=== PATIENT | male | born 1970 | race African-American/Black ===

== ENCOUNTER 2023-09-19 11:32 | Emergency (ER) | payer OTHER, SELFPAY ==
[2023-09-19 12:13] VITALS: BP 225/128; PULSE 75; RESP 18; TEMP 36.6; O2SAT 97; BMI 26.6
--- NOTE | 2023-09-19 12:14 | ED.GENADULT ---
HPI - General Adult General Chief complaint: Skin/Abscess/Foreign Body Stated complaint: Hypertension L Forearm Pain Time Seen by Provider: 09/19/23 15:59 History of Present Illness HPI narrative: The patient is a 52-year-old male who has a history of hypertension diagnosed about 8 or 10 years ago. He says that he took medications for several years but has not seen a doctor in awhile and has been off medications for at least a year. He recently moved to this area from [facility]. He is previously lived in this area but he has never had a doctor in this area. He does not have any doctor at all. The patient says that he has noticed a nodule on the skin of his left forearm for about 10 months. Today he thought the nodule had moved a few cm up his arm. It is painless but he became worried that the nodule might represent a blood clot and he came to the emergency room. He has had no other symptoms. No fever, sweats, chills. No chest pain or shortness of breath. No pleuritic pain. No arm swelling. No nausea or vomiting. I was able to contact [facility] the [facility]. He had last filled a blood pressure medication in 2020. It was amlodipine 5 mg daily. Related Data Previous Rx's Medication Instructions Recorded amlodipine 10 mg tablet 10 mg PO DAILY #30 tabs 09/19/23 carvedilol 6.25 mg tablet 6.25 mg PO BID #60 tabs 09/19/23 Allergies Allergy/AdvReac Type Severity Reaction Status Date / Time No Known Allergies Allergy Verified 09/19/23 12:12 Review of Systems Review of Systems: Yes all other systems are reviewed and are negative [facility] Social History Social History Advance Directives: No Advance Directives Information Provided: No Physical Exam ED Vital Signs: Vital Signs - 24 hr 09/19/23 12:13 09/19/23 14:53 09/19/23 15:45 Temperature 97.9 F 98.6 F Pulse Rate 75 78 73 Respiratory Rate 18 18 18 Blood Pressure 225/128 H 184/128 H 185/112 H Pulse Oximetry 97 97 100 Oxygen Delivery Method Room Air Room Air Room Air 09/19/23 17:32 09/19/23 18:02 09/19/23 19:02 Temperature 97.5 F 98.9 F Pulse Rate 76 74 64 Respiratory Rate 20 15 20 Blood Pressure 170/114 H 180/111 H 173/112 H Pulse Oximetry 96 100 Oxygen Delivery Method Room Air Room Air BMI result Body Mass Index 26.6 Const Other: The patient is a fit looking 52-year-old who was awake and alert and does not appear in any distress. He is very pleasant. HENMT Other: Appearance of the face is unremarkable. Face is symmetrical. Mucous membranes moist. Eyes Other: Pupils are round equal, conjunctivae clear, extraocular movements intact Neck Neck: Yes no JVD Resp Effort & Inspection: normal respiratory effort Auscultation: clear to auscultation bilaterally Cardio Rate: regular rate Rhythm: regular rhythm Heart sounds: S1 normal heart sound present and S2 normal heart sound present GI Other: Abdomen is soft and nontender Skin Other: Skin is dry and unremarkable. There has a very small nodule in the skin of the mid dorsum of the left forearm. The nodules on the order of 5 or 6 mm in size. It is nontender. It is nonmobile. It is not fluctuant. Neuro Other: The patient is awake and alert with a normal mental status. Cranial nerves are grossly intact. Moves all 4 extremities normally. Grossly neurologically intact. Extrem Other: The patient has a superficial skin nodule that is quite small in the left mid forearm. Otherwise the extremities are unremarkable. No edema or other abnormalities. Medications Administered Discontinued Medications Generic Name Dose Route Start Last Admin Trade Name Freq PRN Reason Stop Dose Admin Amlodipine Besylate 10 mg 09/19/23 16:39 09/19/23 17:32 Amlodipine Besylate 10 Mg Tablet PO 09/19/23 16:40 10 mg ONCE ONE Administration Protocol Clonidine HCl 0.1 mg 09/19/23 16:39 09/19/23 17:32 Clonidine Hcl 0.1 Mg Tablet PO 09/19/23 16:40 0.1 mg ONCE ONE Administration Protocol Medical Decision Making Medical Decision Making MDM Narrative: This is an RME: Additional HPI, ROS, PE not included below will be deferred to primary provider. This is a [id number]-male, with a hx of hypertension, presenting to the ER with a complaint of cyst on left arm and med refill. Patient states that he has been without his hypertensive medications for the last year. He has no chest pain, shortness breast, headaches or dizziness. Blood pressure found to be elevated at 225/128. Advised charge nurse for pt to be brought back to room gabe given blood pressure Plan: Labs, EKG The patient presents primarily for concern about a small nodule on the skin of the left forearm that seems quite nonspecific and may be a lipoma. Does not seem vascular in any way. I performed a bedside ultrasound. There was no flow. There was no fluid. With regard to the patient's blood pressure was quite high but patient has not had any symptoms that I would attribute to hypertension. No headache, chest pain, shortness of breath, abdominal pain. His initial troponin was mildly elevated but a repeat troponin was no higher. His EKG is not obviously ischemic. His renal function is slightly suboptimal with a creatinine of 1.34, BUN of 11, and a GFR of 56. However I suspect that this is probably not acute. I contacted the patient's pharmacy in the [facility]. He has been on amlodipine before. I will prescribe amlodipine 10 mg daily. I will also prescribe 6.25 mg of carvedilol b.i.d.. The patient will be discharged to take these medications at home. He currently has an insurance product that he does not know much about. He plans on applying for [employer] [facility]. He was given phone number for the [facility] financial counseling department and should call tomorrow for assistance with application for [facility]. He was also given the phone numbers for [facility] in [place] and [facility] to try to get a new PCP. Lab Data 09/19/23 12:35 09/19/23 12:35 Labs: Lab Results 09/19/23 09/19/23 Range/Units 12:35 15:33 WBC 4.2 L (4.8-10.8) X10*3/uL RBC 6.18 H (4.60-5.80) X10*6/uL Hgb 17.2 (14.0-18.0) g/dl Hct 50.4 (42.0-52.0) % MCV 81.6 (80.0-98.0) fL MCH 27.8 (27.0-33.0) pg MCHC 34.1 (31.0-36.0) g/dl RDW 12.6 (11.0-16.0) % Plt Count 277 (160-400) X10*3/uL MPV 8.8 L (9.4-12.4) fL Immature Gran % (Auto) 0.0 (0.0-0.4) % Neut % (Auto) 27.0 L (45-73) % Lymph % (Auto) 59.9 H (20-40) % [place] % (Auto) 10.9 (2-11) % Eos % (Auto) 1.7 (0-4) % Baso % (Auto) 0.5 (0-2) % Lymph # (Auto) 2.5 (1.2-4.9) X10*3/uL [place] # (Auto) 0.5 (0.1-1.2) X10*3/uL Eos # (Auto) 0.1 (0.0-0.4) X10*3/uL Baso # (Auto) 0.0 (0.0-0.2) X10*3/uL Abs Immat Gran (auto) 0.00 (0.00-0.03) X10*3/uL Absolute Neuts (auto) 1.1 L (2.0-8.3) x10*3/uL Absolute Nucleated RBC 0.000 (0.0-0.012) X10*3/uL Nucleated RBC % (auto) 0.0 (0.0-0.2) /100WBC Sodium 141 (135-145) mmol/L Potassium 3.6 (3.3-5.1) mmol/L Chloride 105 (96-108) mmol/L Carbon Dioxide 31 H (22-29) mmol/L Anion Gap 9 L (12-20) BUN 11 (9-16) mg/dL Creatinine 1.34 (0.5-1.4) mg/dL Estim Creat Clear Calc 61.6 Estimated GFR 56 Random Glucose 114 (60-115) mg/dL Calcium 9.8 (8.4-10.2) mg/dL Magnesium 2.1 (1.6-2.6) mg/dL Total Bilirubin 0.6 (0.0-1.0) mg/dL Direct Bilirubin 0.2 (0.0-0.5) mg/dL AST 25 (5-37) U/L ALT 30 (0-40) U/L Alkaline Phosphatase 94 (39-117) U/L Troponin I High Sens 42.3 H 41.4 H (<3.5-35.0) ng/L Total Protein 7.6 (6.5-8.0) g/dL Albumin 4.1 (3.5-5.0) g/dL Lipase 25 (8-78) U/L Independent Interpretation I performed an independent interpretation of an: EKG Interpretation: EKG at 12:29 shows normal sinus rhythm with a sinus arrhythmia at 71 beats per minute. There are inverted T-waves in leads 3 and AVF but no ST segment changes. No prior EKGs available for comparison. Discharge Plan Discharge Clinical Impression: Hypertension, Single skin nodule Patient Disposition: Home, Self-Care Additional Instructions: I think the lesion on your left arm is very likely benign. I do not think it is involved with a blood clot at all. For your blood pressure please take amlodipine once a day. In addition take carvedilol 2 times a day. For assistance in applying for [employer] please contact the [facility] financial counseling department at [phone] or [phone]. Please work on getting a new primary care doctor as well. I have put in contact information for the [facility] office in [place] and also for the [facility]. Please try these offices to see if you can get a new patient appointment. Return to the emergency room if significantly worse Prescriptions: New amlodipine 10 mg tablet 10 mg PO DAILY Qty: 30 0RF carvedilol 6.25 mg tablet 6.25 mg PO BID Qty: 60 0RF Rx Instructions: must administer with a meal/food Referrals: [facility] [Provider Group] (Hypertension) [facility]. [facility] [Provider Group] (Hypertension) Interventions: ED Discharge Assessment Last Done: 09/19/23 19:02 Discharge Date/Time: 09/19/23 19:05
--- NOTE | 2023-09-19 12:20 | ECG_ITS ---
Test Reason : htn Blood Pressure : / mmHG Vent. Rate : 071 BPM Atrial Rate : 071 BPM P-R Int : 170 ms QRS Dur : 096 ms QT Int : 362 ms P-R-T Axes : 052 -24 -06 degrees QTc Int : 393 ms Normal sinus rhythm with sinus arrhythmia Normal ECG No previous ECGs available Referred By: Savi Farrell Electronically Signed By:Prashant Lau
[2023-09-19 12:41] LABS: MANUAL DIFF FLAG NO
[2023-09-19 12:55] LABS: Basophils Percent Auto 0.5 % (0-2); Eosinophils Absolute Auto 0.1 X10*3/uL (0.0-0.4); Eosinophils Percent Auto 1.7 % (0-4); Hematocrit 50.4 % (42.0-52.0); Hemoglobin 17.2 g/dl (14.0-18.0); Lymphocytes Absolute Auto 2.5 X10*3/uL (1.2-4.9); Lymphocytes Percent Auto 59.9 % (20-40); Mean Corpuscular HGB Conc 34.1 g/dl (31.0-36.0); Mean Corpuscular Hemoglobin 27.8 pg (27.0-33.0); Mean Corpuscular Volume 81.6 fL (80.0-98.0); Mean Platelet Volume 8.8 fL (9.4-12.4); Monocytes Absolute Auto 0.5 X10*3/uL (0.1-1.2); Monocytes Percent Auto 10.9 % (2-11); Neutrophils Absolute Auto 1.1 x10*3/uL (2.0-8.3); Platelet Count 277 X10*3/uL (160-400); Red Blood Count 6.18 X10*6/uL (4.60-5.80); Red Cell Distribution Width 12.6 % (11.0-16.0); White Blood Count 4.2 X10*3/uL (4.8-10.8)
[2023-09-19 12:57] LABS: Alanine Aminotransferase 30 U/L (0-40); Albumin Level 4.1 g/dL (3.5-5.0); Alkaline Phosphatase 94 U/L (39-117); Anion Gap 9 (12-20); Aspartate Amino Transferase 25 U/L (5-37); Bilirubin Direct 0.2 mg/dL (0.0-0.5); Bilirubin Total 0.6 mg/dL (0.0-1.0); Blood Urea Nitrogen 11 mg/dL (9-16); Calcium 9.8 mg/dL (8.4-10.2); Carbon Dioxide 31 mmol/L (22-29); Chloride 105 mmol/L (96-108); Creatinine Clr Calc Pharmacy 61.6; Estimated Glomerular Filt Rate 56; Glucose Random 114 mg/dL (60-115); Lipase 25 U/L (8-78); Magnesium 2.1 mg/dL (1.6-2.6); Potassium 3.6 mmol/L (3.3-5.1); Sodium 141 mmol/L (135-145); Total Protein 7.6 g/dL (6.5-8.0)
[2023-09-19 13:06] LABS: Troponin-I High Sensitivity 42.3 ng/L (<3.5-35.0)
[2023-09-19 14:53] VITALS: BP 184/128; PULSE 78; RESP 18; TEMP 37; O2SAT 97
[2023-09-19 15:45] VITALS: BP 185/112; PULSE 73; RESP 18; O2SAT 100
[2023-09-19 16:06] LABS: Troponin-I High Sensitivity 41.4 ng/L (<3.5-35.0)
[2023-09-19 17:32] VITALS: BP 170/114; PULSE 76; RESP 20
[2023-09-19] MEDS: amLODIPine Besylate 10 MG TABLET PO (17:32)
[2023-09-19] MEDS: cloNIDine HCL 0.1 MG TABLET PO (17:32)
[2023-09-19 18:02] VITALS: BP 180/111; PULSE 74; RESP 15; TEMP 36.4; O2SAT 96
[2023-09-19 19:02] VITALS: BP 173/112; PULSE 64; RESP 20; TEMP 37.2; O2SAT 100
== END 2023-09-19 19:05 | disposition home or self-care (01) ==
PROVIDERS: Physician Assistant Medical; Emergency Provider Emergency Medicine
DX: I10 Essential (primary) hypertension (principal); R22.42 Localized swelling, mass and lump, left lower limb; Z76.0 Encounter for issue of repeat prescription
CPT/HCPCS: 36415; 80048; 80076; 83690; 83735; 84484; 85025; 93005; 99283; 99284

== ENCOUNTER → 2023-09-19 12:20 | Outpatient (BNV) | payer OTHER, SELFPAY | PROVIDERS: Emergency Provider Emergency Medicine; Visit Provider Internal Medicine Cardiovascular Disease | DX: I10 Essential (primary) hypertension (principal) | CPT/HCPCS: 93010 ==